=== PATIENT | male | born 1950 | race Caucasian/White ===

== ENCOUNTER 2019-02-03 09:48 | Emergency (ER) | payer BC, MEDICARE ==
[2019-02-03] MEDS ORDERED: Sodium Chloride 0.9% 10 ML Syringe FLUSH PRN (10:27)
[2019-02-03] MEDS ORDERED: Sodium Chloride 0.9% 1,000 ML IV ONE (10:27)
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
[2019-02-03 13:17] VITALS: BP 138/79
--- NOTE | 2019-02-05 06:35 | CT ---
Head CT Technique: Multiple axial sections through the brain were obtained. Intravenous contrast was not utilized. Comparison: Prior head CT study of 07/19/14. Findings: Ventricles along with basal cisterns and sulci over the convexities are moderately prominent. No abnormal parenchymal densities are seen. No evidence of intracranial hemorrhage. No midline shift or mass effect is seen. Bone window settings were reviewed which show no acute calvarial abnormality. Visualized sinuses are clear. Impression: 1. Nothing acute is appreciated on noncontrast head CT exam. Diagnostic code #1
--- NOTE | 2019-02-05 06:35 | CR ---
Chest: Two views of the chest were obtained. Comparison: No prior chest x-ray is available. Heart size and mediastinum are within normal limits. Lungs are clear. Bony structures are grossly intact. Impression: 1. Nothing acute is appreciated on two-view chest x-ray. Diagnostic code #1
== END 2019-02-03 13:10 | disposition home or self-care (01) ==
LOC: JD.ED 09:48
DX: R41.0 Disorientation, unspecified (principal); R44.1 Visual hallucinations; E78.00 Pure hypercholesterolemia, unspecified; Z79.82 Long term (current) use of aspirin; Z79.899 Other long term (current) drug therapy
CPT/HCPCS: 36415; 70450; 71046; 80053; 80306; 81001; 82140; 82962; 83735; 84443; 84484; 85007; 85027; 85610; 85730; 93005; 96360; 96361; 99285; G0480; J7040; 93010; 99283

== ENCOUNTER 2019-02-09 22:56 | Emergency (ER) | payer BC, MEDICARE ==
[2019-02-09 23:17] VITALS: BP 194/102
--- NOTE | 2019-02-09 23:38 | EDM.PDOC ---
ED HPI GENERAL MEDICAL PROBLEM - General Chief Complaint: Behavioral/Psych Stated Complaint: HALLUCINATIONS Time Seen by Provider: 02/09/19 23:33 Source of Information: Reports: Patient, Family History Limitations: Reports: Altered Mental Status (Spouse to commands asked of him.), Other (No signs of intoxication.) - History of Present Illness INITIAL COMMENTS - FREE TEXT/NARRATIVE: 68-year-old male presents to the ED due to confusion and visual hallucinations. He has been developing hallucinations gradually over the last several months. Last week he drove her vehicle and got lost self of [employer] [place]. Tonight he walked away from the house and had to be followed by his son. It took a while for him to recognize his son's voice. He states that he seemed to large man with a large box and they were going to drop it up on him. He therefore left the house out of fear. used to be a very bad alcoholic but stopped drinking approximately 5 years ago. He has had a recent MRI of the brain which reset revealed degenerative changes but nothing else acute. Complete laboratory workup done last Tuesday did not reveal any significant abnormalities in his labs to account for visual hallucinations. On Tuesday, February 05 he was started on small dose of Risperdal was 0.25 mg morning and bedtime. His hasn't noticed any significant difference in his mood or activity. 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 He apparently was started on Aricept 10 mg daily on February 03.) - Related Data Allergies Allergy/AdvReac Type Severity Reaction Status Date / Time No Known Allergies Allergy Verified 02/03/19 09:58 Home Meds: Home Meds Aspirin 81 mg PO DAILY 07/19/15 [History] Cholecalciferol (Vitamin D3) [Vitamin D-3] 2,000 unit PO BEDTIME 07/19/15 [ History] Ibuprofen [Advil] 200 mg PO Q6HR PRN 07/19/15 [History] Multivits,Ca,Min/Iron/FA/Lycop [Centrum Men's Tablet] 1 tab PO DAILY 07/19/15 [ History] Nortriptyline 10 mg PO BEDTIME 07/19/15 [History] Naproxen Sodium [Aleve] 220 mg PO ASDIRECTED PRN 07/21/15 [History] Donepezil HCl 10 mg PO DAILY 02/03/19 [History] Ubidecarenone [Co Q-10] 100 mg PO DAILY 02/03/19 [History] atorvaSTATin [Lipitor] 20 mg PO DAILY 02/03/19 [History] risperiDONE [Risperdal] 0.25 mg PO BID 02/09/19 [History] Benztropine [Cogentin] 1 mg PO DAILY #30 tab 02/10/19 [Rx] risperiDONE [Risperdal] 0.5 mg PO BID #60 tablet 02/10/19 [Rx] Past Medical History HEENT History: Reports: Impaired Vision Other HEENT History: wears eyeglasses. Cardiovascular History: Reports: High Cholesterol Genitourinary History: Reports: Other (See Below) Other Genitourinary History: voids frequently. Musculoskeletal History: Reports: Fracture Other Musculoskeletal History: R shoulder tendonititis, bone spur, multiple bone fractures Neurological History: Reports: Other (See Below) Other Neuro History: headaches, memory loss--due to R) homonymous hemianopsia Psychiatric History: Reports: Addiction - Infectious Disease History Infectious Disease History: Reports: Chicken Pox, Measles, Mumps - Past Surgical History Musculoskeletal Surgical History: Reports: Shoulder Surgery Other Musculoskeletal Surgeries/Procedures:: elbow surgery. Social & Family History - Tobacco Use Smoking Status *Q: Never Smoker - Caffeine Use Caffeine Use: Reports: Coffee, Soda, Tea - Alcohol Use Alcohol Use History: No - Recreational Drug Use Recreational Drug Use: No ED ROS GENERAL - Review of Systems Review Of Systems: See Below Constitutional: Reports: Decreased Appetite, Weight Loss. Denies: Fever, Chills , Malaise, Weakness, Fatigue HEENT: Reports: Glasses Respiratory: Reports: No Symptoms Cardiovascular: Reports: No Symptoms Endocrine: Reports: No Symptoms GI/Abdominal: Reports: No Symptoms : Reports: Frequency, Other (Nocturia 2 or 3) Musculoskeletal: Reports: Neck Pain, Back Pain Skin: Reports: No Symptoms Neurological: Reports: Confusion, Other (With reported intermittent visual hallucinations.) Psychiatric: Reports: Hallucinations (Primarily visual hallucinations no evidence of auditory hallucinations) Hematologic/Lymphatic: Reports: No Symptoms Immunologic: Reports: No Symptoms - Physical Exam Exam: See Below Exam Limited By: Altered Mental Status (Patient is confused and unable to follow commands.) General Appearance: Alert, WD/WN, Anxious (Mildly anxious.) Eye Exam: Bilateral Eye: Normal Inspection Throat/Mouth: Normal Inspection, Normal Lips, Normal Oropharynx Head Exam: Atraumatic, Normocephalic Neck: Normal Inspection, Supple, Non-Tender, Full Range of Motion Respiratory/Chest: Lungs Clear, Normal Breath Sounds, Respiratory Distress Cardiovascular: Normal Peripheral Pulses, Regular Rate, Rhythm, No Edema, No Gallop, No Murmur GI/Abdominal: Normal Bowel Sounds, Soft, Non-Tender, No Organomegaly, No Abnormal Bruit, No Mass, Pelvis Stable Neuro Exam (Abbreviated): Alert, No Motor/Sensory Deficits, Confused, Disoriented (Mildly confused). No: Oriented, Slow to Respond ( disoriented to time), Unresponsive Extremities: Normal Inspection, Normal Range of Motion, Non-Tender, No Pedal Edema Psychiatric: Anxious Skin Exam: Warm, Dry, Intact, Normal Color, No Rash Course - Vital Signs Last Recorded V/S: Last Vital Signs Temp 37.0 C 02/09/19 23:15 Pulse 68 02/09/19 23:15 Resp 20 02/09/19 23:15 BP 194/102 H 02/09/19 23:15 Pulse Ox 99 02/09/19 23:15 - Orders/Labs/Meds Labs: Laboratory Tests 02/09/19 02/09/19 Range/Units 23:40 23:40 WBC 5.66 (4.23-9.07) K/mm3 RBC 4.52 L (4.63-6.08) M/mm3 Hgb 13.3 L (13.7-17.5) gm/L Hct 40.4 (40.1-51.0) % MCV 89.4 (79.0-92.2) fl MCH 29.4 (25.7-32.2) pg MCHC 32.9 (32.2-35.5) g/dl RDW Std Deviation 44.1 H (35.1-43.9) fL Plt Count 186 (163-337) K/mm3 MPV 9.6 (9.4-12.3) fl Neutrophils % (Manual) 75 H (40-60) % Band Neutrophils % 0 (0-10) % Lymphocytes % (Manual) 20 (20-40) % Atypical Lymphs % 0 % Monocytes % (Manual) 3 (2-10) % Eosinophils % (Manual) 2 (0.8-7.0) % Basophils % (Manual) 0 L (0.2-1.2) Platelet Estimate Adequate RBC Morph Comment Normal Sodium 143 (136-145) mEq/L Potassium 4.0 (3.5-5.1) mEq/L Chloride 109 H (98-107) mEq/L Carbon Dioxide 27 (21-32) mEq/L Anion Gap 11.0 (5-15) BUN 19 H (7-18) mg/dL Creatinine 1.2 (0.7-1.3) mg/dL Est Cr Clr Drug Dosing 70.40 mL/min Estimated GFR (MDRD) > 60 (>60) mL/min BUN/Creatinine Ratio 15.8 (14-18) Glucose 125 H (80-115) mg/dL Calcium 9.1 (8.5-10.1) mg/dL Magnesium 1.9 (1.8-2.4) mg/dl Total Bilirubin 0.3 (0.2-1.0) mg/dL AST 26 (15-37) U/L ALT 39 (16-63) U/L Alkaline Phosphatase 79 (46-116) U/L Total Protein 6.9 (6.4-8.2) g/dl Albumin 3.7 (3.4-5.0) g/dl Globulin 3.2 gm/dL Albumin/Globulin Ratio 1.2 (1-2) Ethyl Alcohol 0.00 (0.00) gm% Meds: Medications Discontinued Medications Generic Name Dose Route Start Last Admin Trade Name Freq PRN Reason Stop Dose Admin Benztropine Mesylate 0.5 mg 02/10/19 00:41 02/10/19 00:43 Cogentin PO 02/10/19 00:42 0.5 mg NOW STA Administration Hydromorphone HCl 1 mg 02/10/19 00:19 Dilaudid IVPUSH 02/10/19 00:20 ONETIME ONE Risperidone 0.5 mg 02/10/19 00:31 02/10/19 00:32 Risperidal PO 02/10/19 00:32 0.5 mg ONETIME ONE Administration - Radiology Interpretation Free Text/Narrative:: 68-year-old male presents to the ED after reportedly having increased visual hallucinations at home tonight. He became fearful as he could see 2 large man like to drop a large box on him. He therefore left his home walking. His is currently working here in the hospital and she was able to contact him by phone. She then had to call her son to go and find him. At first he didn't recognize his son's voice but after a while he was able to understand him and was brought to the hospital for further evaluation. Patient has had gradually worsening visual hallucinations over the last several weeks. He had a complete workup last week and nothing untoward was identified. MRI revealed degenerative changes throughout the brain but no masses or significant white matter disease. He has been started on low-dose Risperdal 0.25 mg twice a day and has had no effect obviously on the visual hallucinations which cause great fear. He is unable to understand or comprehend my neuro exam efforts. Routine labs will be performed to rule out hyponatremia etc. - Re-Assessments/Exams Free Text/Narrative Re-Assessment/Exam: 02/10/19 01:00 Labs are back. White count is normal at 5.66 with 75% neutrophils and no band cells reported. Hemoglobin is 13.3 with hematocrit of 40.4. Platelet count is 1 86,000. Sodium 143 with a potassium of 4.0. Chloride 109 with a bicarbonate of 27. Anion gap is normal 11.0. BUN is 19 with a creatinine of 1.2. Estimated GFR is greater than 60. Glucose is 125. Calcium is 9.1. Magnesium is 1.9. Liver function is normal. Total protein is 6.9 with albumin fraction of 3.7. Blood alcohol is 0.00. Patient is resting comfortably at this point time. His is working in the hospital overnight and therefore he will remain in the ED until she gets off work as otherwise he would be being discharged to home on alone. He has received Risperdal 0.5 mg orally with Cogentin 0.5 mg by mouth as well. 05/18/19 06:39 Patient slept well most of the night. But up to the bathroom only once. No further complaints of visual hallucinations while in the ED. We discharged home in care of his when she gets off work at 0700 hrs. this morning. Will be to increase his Risperdal as above. Departure - Departure Time of Disposition: 07:00 Disposition: Home, Self-Care 01 Condition: Poor Clinical Impression: Hallucinations, Visual hallucinations Dementia associated with alcoholism Qualifiers: Dementia behavioral disturbance: with behavioral disturbance Qualified Code(s) : F10.27 - Alcohol dependence with alcohol-induced persisting dementia - Discharge Information *PRESCRIPTION DRUG MONITORING PROGRAM REVIEWED*: No *COPY OF PRESCRIPTION DRUG MONITORING REPORT IN PATIENT JULIANA: No Prescriptions: Benztropine [Cogentin] 1 mg PO DAILY #30 tab risperiDONE [Risperdal] 0.5 mg PO BID #60 tablet Referrals: Deon Cates MD [Primary Care Provider] - Forms: ED Department Discharge Additional Instructions: Evaluation the emergency room tonight in regards to increased visual hallucinations which produced a great deal of fear tonight. Has described by the patient 2 large man were above him and going to drop a large box on him. He did not recognize any auditory hallucinations. It appears that the patient has underlying dementia and is suspect to have been caused by alcoholism in the past. He has been on Aricept 10 mg daily for greater than 2 years. MRI done recently did not reveal any abnormalities other than degenerative changes of the brain. Lab tests repeated tonight were also completely normal. Treated with increased dose of Risperdal 0.5 mg tonight with Cogentin 0.5 mg to prevent side effects. It appears that he is going to need an increased dose of Risperdal to try and bring the visual hallucinations under control. Suggest Cogentin 1 mg once daily every morning with Risperdal 0.5 mg and then increase Risperdal at bedtime to 0.5 mg as well for the next week and then reevaluate. Maximum dose is usually is around 4 mg daily.
[2019-02-10] MEDS ORDERED: HYDROmorphone 1 MG/ML Syringe IVPUSH ONE (00:19)
[2019-02-10] MEDS ORDERED: risperiDONE 0.5 MG Tab PO ONE (00:31)
[2019-02-10] MEDS ORDERED: Benztropine 1 MG Tab PO STA (00:41)
== END 2019-02-10 07:54 | disposition home or self-care (01) ==
LOC: JD.ED 22:56
DX: F10.27 Alcohol dependence with alcohol-induced persisting dementia (principal); R44.1 Visual hallucinations; E78.00 Pure hypercholesterolemia, unspecified; Z79.82 Long term (current) use of aspirin; Z79.899 Other long term (current) drug therapy
CPT/HCPCS: 36415; 80053; 83735; 85007; 85027; 99284; A9270; G0480; 99285

== ENCOUNTER 2020-05-21 10:16 | Emergency (ER) | payer BC, MEDICARE ==
[2020-05-21] MEDS ORDERED: Sodium Chloride 0.9% 10 ML Syringe FLUSH PRN ×2 (11:20→12:37)
[2020-05-21] MEDS ORDERED: Sodium Chloride 0.9% 1,000 ML IV SCH (11:30)
[2020-05-21] MEDS ORDERED: Iopamidol 755 Mg/ML 100 ML Bottle IVPUSH ONE (12:37)
[2020-05-21] MEDS ORDERED: Sodium Chloride 0.9% 100 ML IV SCH (12:45)
--- NOTE | 2020-05-21 13:10 | EDM.PDOC ---
ED HPI GENERAL MEDICAL PROBLEM - General Chief Complaint: Respiratory Problem Stated Complaint: [facility] Time Seen by Provider: 05/21/20 11:06 Source of Information: Reports: Family, Long Term Records - History of Present Illness INITIAL COMMENTS - FREE TEXT/NARRATIVE: Patient is a 70-year-old male who presents via [facility] from [facility] with complaints of low oxygen saturation, hypotension, and fever. Patient was diagnosed as COVID positive today after a routine screening. Per 's report as well as the notes of the nurse at the retirement facility, sherif clark has been increasingly lethargic today. He will respond verbally, however lies in his bed with his eyes closed which is not typical for him. He has normally up walking around the facility. [facility] from [facility], vital signs this morning were found to be temperature of 102.0 temporal, oxygen saturation 91%, blood pressure 65/47, with a pulse of 70. Patient does have an underlying history of dementia so he does not contribute to the history. states that last week patient was complaining of being dizzy, however that resolved. He started running a fever last night. 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 He has no underlying cardiac or respiratory pathology. Vital signs in triage were found to be stable. Blood pressure 102/66, oxygen saturation 96% on room air, respiratory rate 20, pulse 54, temp 99.0. Per [facility] report patient did receive a dose of Tylenol 1000 mg at 0753 this morning. Patient's verbalizes that he does chronically have a low pulse. States he is normally in the 50s. - Related Data Allergies Allergy/AdvReac Type Severity Reaction Status Date / Time No Known Allergies Allergy Verified 05/21/20 10:59 Home Meds: Home Meds Aspirin [Ecotrin EC] 81 mg PO DAILY 08/12/19 [History] Donepezil HCl 23 mg PO BEDTIME 08/12/19 [History] risperiDONE [Risperdal] 1 mg PO TID 08/12/19 [History] LORazepam [Ativan] 1 mg PO BID PRN #20 tab 08/16/19 [Rx] OLANZapine [ZyPREXA] 7.5 mg PO DAILY 05/21/20 [History] QUEtiapine [SEROquel] 50 mg PO BEDTIME 05/21/20 [History] Past Medical History HEENT History: Reports: Impaired Vision Other HEENT History: wears eyeglasses. Cardiovascular History: Reports: High Cholesterol Respiratory History: Reports: None Gastrointestinal History: Reports: None Genitourinary History: Reports: Urinary Incontinence, Other (See Below) Other Genitourinary History: voids frequently. Musculoskeletal History: Reports: Fracture Other Musculoskeletal History: R shoulder tendonititis, bone spur, multiple bone fractures Neurological History: Reports: Alzheimers Disease, Other (See Below) Other Neuro History: headaches, memory loss--due to R) homonymous hemianopsia Psychiatric History: Reports: Addiction, Dementia Endocrine/Metabolic History: Reports: None Hematologic History: Reports: None Immunologic History: Reports: None Oncologic (Cancer) History: Reports: None Dermatologic History: Reports: None - Infectious Disease History Infectious Disease History: Reports: Novel Coronavirus - Past Surgical History HEENT Surgical History: Reports: None Cardiovascular Surgical History: Reports: None Neurological Surgical History: Reports: None Musculoskeletal Surgical History: Reports: Shoulder Surgery Other Musculoskeletal Surgeries/Procedures:: elbow surgery. Social & Family History - Family History Family Medical History: Noncontributory - Tobacco Use Smoking Status *Q: Never Smoker - Caffeine Use Caffeine Use: Reports: None Other Caffeine Use: once in awhile. - Recreational Drug Use Recreational Drug Use: No ED ROS GENERAL - Review of Systems Review Of Systems: See Below Constitutional: Reports: Fever, Weakness, Fatigue, Decreased Appetite HEENT: Reports: No Symptoms Respiratory: Reports: No Symptoms. Denies: Shortness of Breath, Wheezing, Pleuritic Chest Pain, Cough Cardiovascular: Reports: No Symptoms. Denies: Chest Pain, Syncope Endocrine: Reports: No Symptoms GI/Abdominal: Reports: No Symptoms. Denies: Abdominal Pain, Diarrhea, Nausea, Vomiting : Reports: No Symptoms Musculoskeletal: Reports: No Symptoms Skin: Reports: No Symptoms Neurological: Reports: Confusion (at baseline d/t hx of dementia) Psychiatric: Reports: No Symptoms Hematologic/Lymphatic: Reports: No Symptoms Immunologic: Reports: No Symptoms ED EXAM, GENERAL - Physical Exam Exam: See Below Exam Limited By: No Limitations General Appearance: Alert, No Apparent Distress, Lethargic (responds to questions, but does not open eyes) Respiratory/Chest: No Respiratory Distress, Lungs Clear, Normal Breath Sounds, No Accessory Muscle Use, Chest Non-Tender Cardiovascular: Normal Peripheral Pulses, Regular Rate, Rhythm, No Edema, No Gallop, No JVD, No Murmur, No Rub GI/Abdominal: Normal Bowel Sounds, Soft, Non-Tender, No Organomegaly, No Distention, No Abnormal Bruit, No Mass Neurological: Alert, Oriented, CN II-XII Intact, Normal Cognition, Normal Gait, Normal Reflexes, No Motor/Sensory Deficits Psychiatric: Normal Affect, Normal Mood Skin Exam: Warm, Dry, Intact, Normal Color, No Rash Course - Vital Signs Last Recorded V/S: Last Vital Signs Temp 99.6 F 05/21/20 15:36 Pulse 63 05/21/20 14:14 Resp 14 05/21/20 14:14 BP 117/74 05/21/20 14:14 Pulse Ox 97 05/21/20 14:14 - Orders/Labs/Meds Orders: Active Orders 24 hr Category Date Time Status Peripheral IV Insertion Adult [OM.PC] Stat Oth 05/21/20 11:20 Ordered Labs: Laboratory Tests 05/21/20 05/21/20 05/21/20 Range/Units 11:40 11:40 11:40 WBC 3.82 L (4.23-9.07) K/mm3 RBC 5.11 (4.63-6.08) M/mm3 Hgb 14.7 (13.7-17.5) gm/dl Hct 45.3 (40.1-51.0) % MCV 88.6 (79.0-92.2) fl MCH 28.8 (25.7-32.2) pg MCHC 32.5 (32.2-35.5) g/dl RDW Std Deviation 43.9 (35.1-43.9) fL Plt Count 139 L (163-337) K/mm3 MPV 9.5 (9.4-12.3) fl Neut % (Auto) 38.6 (34.0-67.9) % Lymph % (Auto) 35.6 (21.8-53.1) % Yancey % (Auto) 23.8 H (5.3-12.2) % Eos % (Auto) 0.5 L (0.8-7.0) Baso % (Auto) 0.5 (0.1-1.2) % Neut # (Auto) 1.47 L (1.78-5.38) K/mm3 Lymph # (Auto) 1.36 (1.32-3.57) K/mm3 Yancey # (Auto) 0.91 H (0.30-0.82) K/mm3 Eos # (Auto) 0.02 L (0.04-0.54) K/mm3 Baso # (Auto) 0.02 (0.01-0.08) K/mm3 Manual Slide Review Abnormal smear PT (9.7-12.0) SECONDS INR APTT (22-31) SECONDS D-Dimer, Quantitative 10.35 H (0.19-0.50) mg/L Sodium 138 (136-145) mEq/L Potassium 4.0 (3.5-5.1) mEq/L Chloride 104 (98-107) mEq/L Carbon Dioxide 26 (21-32) mEq/L Anion Gap 12.0 (5-15) BUN 16 (7-18) mg/dL Creatinine 1.0 (0.7-1.3) mg/dL Est Cr Clr Drug Dosing 75.30 mL/min Estimated GFR (MDRD) > 60 (>60) mL/min BUN/Creatinine Ratio 16.0 (14-18) Glucose 94 (80-115) mg/dL Calcium 8.7 (8.5-10.1) mg/dL Magnesium (1.8-2.4) mg/dl Ferritin (26-388) ng/ml Total Bilirubin 0.2 (0.2-1.0) mg/dL AST 56 H (15-37) U/L ALT 65 H (16-63) U/L Alkaline Phosphatase 107 (46-116) U/L Lactate Dehydrogenase (85-227) U/L C-Reactive Protein 1.7 H* (<1.0) mg/dL Total Protein 6.9 (6.4-8.2) g/dl Albumin 3.3 L (3.4-5.0) g/dl Globulin 3.6 gm/dL Albumin/Globulin Ratio 0.9 L (1-2) 05/21/20 05/21/20 05/21/20 Range/Units 11:40 11:40 11:40 WBC (4.23-9.07) K/mm3 RBC (4.63-6.08) M/mm3 Hgb (13.7-17.5) gm/dl Hct (40.1-51.0) % MCV (79.0-92.2) fl MCH (25.7-32.2) pg MCHC (32.2-35.5) g/dl RDW Std Deviation (35.1-43.9) fL Plt Count (163-337) K/mm3 MPV (9.4-12.3) fl Neut % (Auto) (34.0-67.9) % Lymph % (Auto) (21.8-53.1) % Yancey % (Auto) (5.3-12.2) % Eos % (Auto) (0.8-7.0) Baso % (Auto) (0.1-1.2) % Neut # (Auto) (1.78-5.38) K/mm3 Lymph # (Auto) (1.32-3.57) K/mm3 Yancey # (Auto) (0.30-0.82) K/mm3 Eos # (Auto) (0.04-0.54) K/mm3 Baso # (Auto) (0.01-0.08) K/mm3 Manual Slide Review PT 11.6 (9.7-12.0) SECONDS INR 1.09 APTT 32 H (22-31) SECONDS D-Dimer, Quantitative (0.19-0.50) mg/L Sodium (136-145) mEq/L Potassium (3.5-5.1) mEq/L Chloride (98-107) mEq/L Carbon Dioxide (21-32) mEq/L Anion Gap (5-15) BUN (7-18) mg/dL Creatinine (0.7-1.3) mg/dL Est Cr Clr Drug Dosing mL/min Estimated GFR (MDRD) (>60) mL/min BUN/Creatinine Ratio (14-18) Glucose (80-115) mg/dL Calcium (8.5-10.1) mg/dL Magnesium (1.8-2.4) mg/dl Ferritin 103 (26-388) ng/ml Total Bilirubin (0.2-1.0) mg/dL AST (15-37) U/L ALT (16-63) U/L Alkaline Phosphatase (46-116) U/L Lactate Dehydrogenase 185 (85-227) U/L C-Reactive Protein (<1.0) mg/dL Total Protein (6.4-8.2) g/dl Albumin (3.4-5.0) g/dl Globulin gm/dL Albumin/Globulin Ratio (1-2) 05/21/ Range/Units 11:40 WBC (4.23-9.07) K/mm3 RBC (4.63-6.08) M/mm3 Hgb (13.7-17.5) gm/dl Hct (40.1-51.0) % MCV (79.0-92.2) fl MCH (25.7-32.2) pg MCHC (32.2-35.5) g/dl RDW Std Deviation (35.1-43.9) fL Plt Count (163-337) K/mm3 MPV (9.4-12.3) fl Neut % (Auto) (34.0-67.9) % Lymph % (Auto) (21.8-53.1) % Yancey % (Auto) (5.3-12.2) % Eos % (Auto) (0.8-7.0) Baso % (Auto) (0.1-1.2) % Neut # (Auto) (1.78-5.38) K/mm3 Lymph # (Auto) (1.32-3.57) K/mm3 Yancey # (Auto) (0.30-0.82) K/mm3 Eos # (Auto) (0.04-0.54) K/mm3 Baso # (Auto) (0.01-0.08) K/mm3 Manual Slide Review PT (9.7-12.0) SECONDS INR APTT (22-31) SECONDS D-Dimer, Quantitative (0.19-0.50) mg/L Sodium (136-145) mEq/L Potassium (3.5-5.1) mEq/L Chloride (98-107) mEq/L Carbon Dioxide (21-32) mEq/L Anion Gap (5-15) BUN (7-18) mg/dL Creatinine (0.7-1.3) mg/dL Est Cr Clr Drug Dosing mL/min Estimated GFR (MDRD) (>60) mL/min BUN/Creatinine Ratio (14-18) Glucose (80-115) mg/dL Calcium (8.5-10.1) mg/dL Magnesium 1.8 (1.8-2.4) mg/dl Ferritin (26-388) ng/ml Total Bilirubin (0.2-1.0) mg/dL AST (15-37) U/L ALT (16-63) U/L Alkaline Phosphatase (46-116) U/L Lactate Dehydrogenase (85-227) U/L C-Reactive Protein (<1.0) mg/dL Total Protein (6.4-8.2) g/dl Albumin (3.4-5.0) g/dl Globulin gm/dL Albumin/Globulin Ratio (1-2) Meds: Medications Discontinued Medications Generic Name Dose Route Start Last Admin Trade Name Freq PRN Reason Stop Dose Admin Acetaminophen 975 mg 05/21/20 15:21 05/21/20 15:36 Tylenol PO 05/21/20 15:22 975 mg NOW ONE Administration Sodium Chloride 1,000 mls @ 75 mls/hr 05/21/20 11:30 05/21/20 11:41 Normal Saline IV 75 mls/hr ASDIRECTED JOSELINE Administration Sodium Chloride 100 mls @ 75 mls/hr 05/21/20 12:45 Normal Saline IV ASDIRECTED JOSELINE Iopamidol 100 ml 05/21/20 12:37 05/21/20 13:06 Isovue-370 (76%) IVPUSH 05/21/20 12:38 100 ml ONETIME ONE Administration Sodium Chloride 10 ml 05/21/20 11:20 05/21/20 11:59 Saline Flush FLUSH 10 ml ASDIRECTED PRN Administration Keep Vein Open Sodium Chloride 10 ml 05/21/20 12:37 05/21/20 13:06 Saline Flush FLUSH 10 ml ONETIME PRN Administration IV FLUSH - Re-Assessments/Exams Free Text/Narrative Re-Assessment/Exam: 05/21/20 1230 Hematology was significant for WBC slightly low at 3.82, platelets 139, d-dimer elevated at 10.35, AST 56, ALT 65, CRP 1.7. Chest x-ray was found to be normal. There is no evidence of pneumonia. Based on the patient's d-dimer of 10.35, I have ordered a CT angiogram of the chest to rule out PE. 05/21/20 15:31 CT of the chest was negative for PE. My plan [facility] as he is hemodynamically stable. Blood pressures have been normal. Oxygen saturation is 95-100% on room air while awake, however he does dip to 91% while sleeping. I have ordered IV to be saline locked. Have also ordered Tylenol 975 mg as he has not had a dose since 0730 this morning. I did call and speak with the patient's PCP, Carmencita Teresa NP. She informed me that there were 8 COVID positive patients in the [facility] today and that they are unable to accept them back as they are not equipped to handle caring for COVID patients. Unfortunately we do not have any beds available in our facility and Carmencita Ashley NP reports that the [facility] does not have beds available either. I did call and speak with Dr. Rodas the hospitalist at [facility] in [place]. She has accepted the patient for transfer with a direct admission. Patient's has been updated is in agreement with the plan. Patient will transport via [facility] ambulance BLS services. Departure - Departure Time of Disposition: 15:35 Disposition: DC/Tfer to Acute Hospital 02 Condition: Good Clinical Impression: COVID-19 - Discharge Information Referrals: PCP,Not In Area [Primary Care Provider] - Forms: ED Department Discharge Sepsis Event Note (ED) - Evaluation Sepsis Screening Result: No Definite Risk - Focused Exam Vital Signs: Vital Signs Temp Temp Pulse Resp BP Pulse Ox 05/21/20 15:36 99.6 F 05/21/20 14:45 99.1 F 05/21/20 14:14 63 14 117/74 97 05/21/20 12:00 56 L 18 98/77 92 L 05/21/20 11:40 98.4 F 05/21/20 10:55 98.4 F 05/21/20 10:37 99.0 F 54 L 20 102/66 96 - My Orders Last 24 Hours: My Active Orders 05/21/20 11:20 Peripheral IV Insertion Adult [OM.PC] Stat - Assessment/Plan Last 24 Hours: My Active Orders 05/21/20 11:20 Peripheral IV Insertion Adult [OM.PC] Stat
--- NOTE | 2020-05-21 13:45 | CT ---
CT chest Technique: Multiple axial sections through the chest were obtained. Intravenous contrast was utilized. Study performed as a pulmonary angiogram protocol. Findings: Pulmonary arteries are fairly well opacified. No filling defects are seen to indicate pulmonary embolism. Aorta shows no aneurysm. Mediastinum and hilar regions show no adenopathy. No pericardial thickening is seen. Visualized portions of the upper abdominal structures shows no discrete abnormality. Lungs show mild dependent atelectasis. No acute parenchymal change is seen. No pleural effusions are noted. Bone window settings were reviewed which shows scattered endplate spurring within the spine. No acute osseous finding is seen. Impression: 1. No findings of pulmonary embolism. 2. No definite acute parenchymal change is noted within either lung. Diagnostic code #2 This report was dictated in MDT
--- NOTE | 2020-05-21 13:48 | CR ---
Chest: Portable view of the chest was obtained. Comparison: Prior chest x-ray of 08/12/19. Heart size and mediastinum are normal. Lungs are clear with no acute parenchymal change. Bony structures are grossly intact. Impression: 1. Nothing acute is seen on portable chest x-ray. Diagnostic code #1 This report was dictated in MDT
[2020-05-21 14:14] VITALS: BP 117/74; PULSE 63
[2020-05-21] MEDS ORDERED: Acetaminophen 325 MG Tab PO ONE (15:21)
== END 2020-05-21 16:25 ==
LOC: JD.ED 10:16
DX: U07.1 COVID-19 (principal); F03.90 Unspecified dementia, unspecified severity, without behavioral disturbance, psychotic disturbance, mood disturbance, and anxiety; Z79.82 Long term (current) use of aspirin; Z79.899 Other long term (current) drug therapy
CPT/HCPCS: 36415; 71045; 71275; 80053; 82728; 83615; 83735; 85025; 85379; 85610; 85730; 86140; 96360; 96361; 99285; A9270; J7030; Q9967